=== PATIENT | male | born 1975 | race Caucasian/White ===

== ENCOUNTER 2016-11-08 14:15 | Inpatient (IN) | payer MEDICAID ==
[~2016-11-08] VITALS: Ht 188 cm; Wt 95.5 kg
--- NOTE | ~2016-11-08 | OP ---
PATIENT NAME: MADELIN WRIGHT MEDICAL RECORD: [id number] :75 LOCATION:[id number] ADMISSION DATE:11/08/16 SURGEON: GREG FINE MD DATE OF OPERATION: 11/08/2016 PREOPERATIVE DIAGNOSIS: Grade I open distal radius fracture of the right wrist. POSTOPERATIVE DIAGNOSIS: Grade I open distal radius fracture of the right wrist. PROCEDURE: 1. External fixation -- Birail for distal radius fracture. 2. Percutaneous pinning distal radius fracture times 3. 3. Irrigation and debridement of open wound with primary closure less than 20 cm. SURGEON: Greg Fine MD. ANESTHESIA: General. INTRAOPERATIVE COMPLICATIONS: None. SUMMARY OF PATHOLOGIC FINDINGS: The patient's open, which I do think was a true inside out opening, was less than 1 cm in its total. It was amenable to immediate closure. The patient had a very comminuted distal radius fracture that required external fixation and pinning as described below. OPERATIVE SUMMARY IN DETAIL: After obtaining the appropriate preoperative orthopedic surgery consent as well as anesthetic consultation, evaluation and clearance, the patient was brought to the operating room and placed on the operating table in supine position. After general laryngeal mask was administered, tourniquet was placed about the proximal aspect of the right upper extremity. Right upper extremity was then prepped and draped in routine sterile fashion. The arm was elevated, exsanguinated and tourniquet was inflated to 350 mmHg. Reduction maneuver was performed with counter traction under fluoroscopic guidance resulting in good baptism of the amount of displacement of the primary fracture. At this point, the ex-fix Birail Thakkar II by Washta was placed with 2 pins in the radius, followed by 2 pins in the base of the second ray. The ex-fix was then pulled into a reduced position as seen on fluoroscopy and then the Birail ex-fix was tightened. Having completed this, 0.062 K wires were placed, one to the radial styloid across the ulnar cortex, one to the ulnar styloid across the radial cortex while reducing it using a joystick method and the last of which was placed in a Josué-Kapandji technique from dorsal to volar. Having completed this, relaxing incisions were made about the pins. Incisions for the external fixator were closed with 4-0 Prolene. As for the relaxing incisions of the wound on the contralateral side of the incision having already been debrided both sharply with a scalpel as well as a rongeur was closed with 4-0 Prolene in interrupted fashion. Having completed this, sterile dressings were applied. Tourniquet was deflated. The patient was awakened, taken to the recovery room in stable condition. All final needle and sponge counts were correct. TRANSINT:[id number] Voice Confirmation ID: [id number] DOCUMENT ID: [id number] OPERATIVE REPORT [id number] MADELIN WRIGHT MD, GREG JI CC: [id number] DICTATION DATE: 11/08/16 183 WOOL HAT FLANGER: 11/09/16 0432 ADM IN [facility] [address] [place] [address]
[2016-11-08 15:23] LABS: BASOPHILS 0.1 % (0-2); EOSINOPHILS 0.9 % (0-7); HEMATOCRIT 41.5 % (42.0-54.0); HEMOGLOBIN 14.8 g/dL (13.5-17.5); IMMATURE GRANULOCYTES 0.5 % (0-5); LYMPHOCYTES 14.5 % (15-50); MCH 30.3 pg (26.0-34.0); MCHC 35.7 g/dL (31.0-37.0); MEAN PLATELET VOLUME 8.8 fL (7.4-10.4); MONOCYTES 6.7 % (2-11); NEUTROPHILS 77.3 % (40-80); PLATELET COUNT 198 10x3/uL (130-400); RBC 4.88 10x6/uL (4.20-6.10); RDW 12.5 % (11.5-14.5); WBC 13.6 10x3/uL (4.8-10.8)
[2016-11-08 15:54] LABS: ALBUMIN 3.6 g/dL (3.4-5.0); ALKALINE PHOSPHATASE 83 U/L (46-116); ALT (SGPT) 91 U/L (10-68); CALC OSMOLALITY 286 mosm/kg (275-300); CARBON DIOXIDE 26.8 mmol/L (21.0-32.0); CHLORIDE - SERUM 107 mmol/L (98-107); CREATININE - SERUM 0.9 mg/dL (0.6-1.3); GLUCOSE 91 mg/dL (74-106); POTASSIUM - SERUM 3.5 mmol/L (3.5-5.1); PROTEIN - SERUM 6.9 g/dL (6.4-8.2); SODIUM 143 mmol/L (136-145); UREA NITROGEN 18 mg/dL (7-18); eGFR NON AFRICAN AMERICAN > 90 mL/min (90-120)
[2016-11-08 16:41] LABS: INR 1.29 (0.85-1.17); PROTIME 15.9 SECONDS (11.6-15.0)
[2016-11-08 16:42] LABS: APTT 35.4 SECONDS (22.8-39.4)
--- NOTE | 2016-11-08 18:56 | NUR ---
PT RESTING WITH EYES CLOSED AND VOICING NO COMPLAINTS.
--- NOTE | 2016-11-08 19:35 | NUR ---
RECIEVED PT FROM RECOVERY ROOM, ASSESSMENT COMPLETED, NO ACUTE DISTRESS NOTED, WILL IMPLEMENT ORDERS, ORIENTED PATIENT AND VISITOR TO ROOM AND CALL LIGHT, PLACED SCD'S, SR'S UP, WILL MONITOR
[2016-11-08 19:45] VITALS: BP 112/79
--- NOTE | 2016-11-08 20:00 | NUR ---
FLUIDS HUNG AND DILAUDID TOOLS AND PARTS ATTENDANT STARTED PER ORDERS, EDUCATION PROVIDED TO PT AND VISITOR, UNDERSTANDING VOICED, FALL PRECAUTIONS IN PLACE, CL IN REACH
--- NOTE | 2016-11-08 23:20 | NUR ---
RESTING WITH EYES CLOSED, RESP WITH EASE, R ARM ELEVATED WITH ICE, VISITOR AT BEDSIDE, NO DISTRESS NOTED, SR'S UP, CL IN REACH
[2016-11-09] VITALS (7 sets, daily range): BP systolic 118–138; BP diastolic 56–82; Ht 188 cm; Wt 95.5 kg
--- NOTE | 2016-11-09 01:20 | NUR ---
RESTING WITH EYES CLOSED, NO DISTRESS NOTED, FALL PRECAUTION IN PLACE, VISITOR AT BEDSIDE, R ARM ELEVATED WITH ICE, CL IN REACH
[2016-11-09 06:06] LABS: HEMATOCRIT 37.8 % (42.0-54.0); HEMOGLOBIN 13.4 g/dL (13.5-17.5)
--- NOTE | 2016-11-09 07:30 | NUR ---
AWAKE AND ALERT. ORIENTED X3. NEUROVASCULAR CHECKS WNL. LUNGS ARE CLEAR BILATERALLY, NO COUGH NOTED. SKIN IS INTACT WITHOUT REDNESS EXCEPT INCISIONS TO RIGHT WRIST AREA WHICH ARE CLEAN WITHOUT SIGNS OF INFECTION. EXTERNAL FIXATOR IN PLACE WELL. PICC TO LEFT UPPER ARM IS PATENT WITHOUT REDNESS AT INSERTION SITE. FAMILY AT BEDSIDE.
--- NOTE | 2016-11-09 07:45 | NUR ---
C/O INTENSE PAIN TO RIGHT WRIST. REQUESTED AND GIVEN ONE HYDROCODONE PO AND 15MG TORADOL SLOW IVP FOR SAME. WILL MONITOR.
--- NOTE | 2016-11-09 09:35 | NUR ---
* Is the patient Alert and Oriented? Yes 0 * How many steps to enter\exit or inside your home? 1 0 * PCP B[facility] 0 * Pharmacy [facility] 0 * Preadmission Environment Home with Family 0 * ADLs Independent 0 * Equipment None 0 * List name and contact numbers for known caregivers / representatives who currently or will assist patient after discharge: [place] () [phone] 0 * Community resources currently utilized None 0 * Additional services required to return to the preadmission environment? Yes 0 * Can the patient safely return to the preadmission environment? Yes 0 * Has this patient been hospitalized within the prior 30 days at any hospital? No 0 Grand Total: 0 Patient Name: MADELIN WRIGHT Admission Status: ER Accout number: [id number] Admission Date: 11-08-2016 : 1975 Admission Diagnosis: Attending: CHING Current LOS: 1 Anticipated DC Date: Planned Disposition: Home Health Service Primary Insurance: [facility] [employer] [place] Discharge Planning Comments: CM met with patient and ([place]) to assess discharge planning/needs. Patient plans to return home with his where he lives independently. His will be his pickup driver home. Patient will need to be home health when he is discharged home. [facility] signed for [facility]. CM will continue to follow and assist as needed with discharge planning/needs. PCP: Babatunde Pharmacy: [facility] [place] () [phone] Submarine Element Coordinator: Dary Renee
--- NOTE | 2016-11-09 10:16 | NUR ---
REPORTS PAIN IMPROVED AT THIS TIME. ATE A GOOD BREAKFAST WELL. WILL CONTINUE TO MONITOR.
--- NOTE | 2016-11-09 16:49 | NUR ---
REQUESTED AND GIVEN ONE HYDROCODONE PO FOR C/O RIGHT WRIST PAIN. WILL MONITOR.
--- NOTE | 2016-11-09 18:45 | NUR ---
ATE ALL OF SUPPER. REPORTS PAIN IMPROVED AT THIS TIME. NO CHANGES NOTED. DENIES NEEDS.
[2016-11-10 04:00] VITALS: BP 119/72
--- NOTE | 2016-11-10 04:44 | NUR ---
PATIENT REQUESTED THAT DR. FINE BE PAGED TO ASK FOR MEDICATION FOR SLEEP/ANXIETY.
[2016-11-10 05:48] LABS: HEMATOCRIT 34.7 % (42.0-54.0); HEMOGLOBIN 12.1 g/dL (13.5-17.5)
[2016-11-10] MEDS ORDERED: DILAUDID4 MG PO (07:32)
[2016-11-10] MEDS ORDERED: BACTRIM DS TABL1 TAB PO (07:32)
[2016-11-10 07:58] VITALS: BP 123/75
--- NOTE | 2016-11-10 08:11 | NUR ---
PRN DILAUDID 4MG ADMINISTERED PO FOR PAIN 9/10 INCISIONALLY AT THIS TIME. HUMAN FACTORS SCIENTIST D/C PER ORDER. ASSESSMENT PERFORMED PER FLOWSHEET. PT TO D/C HOME WITH HOME HEALTH TODAY. DENIES NEEDS AT THIS TIME. CALL LIGHT IN REACH, WILL CONTINUE WITH PLAN OF CARE.
[2016-11-10] MEDS ORDERED: XANAX1 MG PO (08:12)
--- NOTE | 2016-11-10 09:26 | NUR ---
HOME HEALTH SET UP WITH [facility] FOR DRESSING CHANGES SPOKE WITH LAYO ([phone]) PATIENT BEING DISCHARGED TODAY WITH TO DRIVE HOME. PT DENIES ANY OTHER CM NEEDS.
--- NOTE | 2016-11-10 10:10 | NUR ---
D/C HOME WITH HIS AT THIS TIME.
== END 2016-11-10 10:10 | disposition home health service (06) | DRG 512 ==
LOC: D.ER 14:15 → D.MS 19:30
PROVIDERS: Emergency Medicine; ADMIT Orthopaedic Surgery
PROC: 0PHH05Z Insertion of External Fixation Device into Right Radius, Open Approach (ICD-10-PCS; 2016-11-08)
PROC: 05HC33Z Insertion of Infusion Device into Left Basilic Vein, Percutaneous Approach (ICD-10-PCS; 2016-11-08)
PROC: B54NZZA Ultrasonography of Left Upper Extremity Veins, Guidance (ICD-10-PCS; 2016-11-08)
PROC: 0PSH34Z Reposition Right Radius with Internal Fixation Device, Percutaneous Approach (ICD-10-PCS; principal; 2016-11-08 16:00)
DX: S52.501B Unspecified fracture of the lower end of right radius, initial encounter for open fracture type I or II (principal); F41.9 Anxiety disorder, unspecified; F17.200 Nicotine dependence, unspecified, uncomplicated; W11.XXXA Fall on and from ladder, initial encounter

== ENCOUNTER 2016-11-12 11:19 | Observation (INO) | payer MEDICAID ==
[~2016-11-12] VITALS: Ht 188 cm; Wt 95.5 kg
[~2016-11-12 11:19] MED LIST: BACTRIM DS TABL1 TAB PO; DILAUDID4 MG PO; XANAX1 MG PO
[2016-11-12 15:05] LABS: BASOPHILS 0.3 % (0-2); HEMATOCRIT 36.7 % (42.0-54.0); HEMOGLOBIN 12.7 g/dL (13.5-17.5); IMMATURE GRANULOCYTES 0.3 % (0-5); LYMPHOCYTES 36.4 % (15-50); MCH 29.7 pg (26.0-34.0); MCHC 34.6 g/dL (31.0-37.0); MCV 85.7 fL (80.0-100.0); MEAN PLATELET VOLUME 8.5 fL (7.4-10.4); MONOCYTES 8.4 % (2-11); NEUTROPHILS 50.6 % (40-80); PLATELET COUNT 178 10x3/uL (130-400); RBC 4.28 10x6/uL (4.20-6.10); RDW 12.5 % (11.5-14.5)
[2016-11-12 15:14] LABS: CALC OSMOLALITY 280 mosm/kg (275-300); CALCIUM 8.2 mg/dL (8.5-10.1); CARBON DIOXIDE 30.2 mmol/L (21.0-32.0); CHLORIDE - SERUM 106 mmol/L (98-107); CREATININE - SERUM 0.9 mg/dL (0.6-1.3); GLUCOSE 81 mg/dL (74-106); SODIUM 141 mmol/L (136-145); UREA NITROGEN 14 mg/dL (7-18); eGFR NON AFRICAN AMERICAN > 90 mL/min (90-120)
[2016-11-12 16:05] VITALS: BP 122/64
--- NOTE | 2016-11-12 16:05 | NUR ---
RECEIVED TO ROOM 2204 VIA WHEELCHAIR FROM THE ER. VERY VERBALLY DISRUPTIVE AND DISRESPECTFUL. ASSISTED TO BED. WILL CONTINUE WITH PLAN OF CARE.
[2016-11-12 16:07] VITALS: BP 144/84; Ht 188 cm; Wt 95.5 kg
--- NOTE | 2016-11-12 19:40 | NUR ---
PT. SITTING HALF WAY ON SIDE OF BED AND WAS RE-INSTRUCTED THAT HE IS NOT TO BE OOB AT ALL DUE TO FX. PT. WANTING TO KNOW WHERE HIS IS AND I EXPLAINED THAT I DIDN'T KNOW AND HAD NOT SEEN HER. LUE MIDLINE WITH NS @ 30 AND TITLE EXAMINER ATTACHED WITHOUT ANY ALARMS. CALL LIGHT WITHIN REACH
[2016-11-12 20:00] VITALS: BP 133/79
[2016-11-13 00:11] VITALS: BP 106/51
[2016-11-13 04:00] VITALS: BP 141/73
[2016-11-13 04:57] LABS: BASOPHILS 0.4 % (0-2); EOSINOPHILS 3.5 % (0-7); HEMATOCRIT 35.3 % (42.0-54.0); HEMOGLOBIN 12.1 g/dL (13.5-17.5); IMMATURE GRANULOCYTES 0.4 % (0-5); LYMPHOCYTES 37.7 % (15-50); MCH 29.5 pg (26.0-34.0); MCHC 34.3 g/dL (31.0-37.0); MCV 86.1 fL (80.0-100.0); MEAN PLATELET VOLUME 8.8 fL (7.4-10.4); MONOCYTES 11.2 % (2-11); NEUTROPHILS 46.8 % (40-80); PLATELET COUNT 178 10x3/uL (130-400); RDW 12.4 % (11.5-14.5); WBC 5.2 10x3/uL (4.8-10.8)
[2016-11-13 05:14] LABS: CALC OSMOLALITY 280 mosm/kg (275-300); CALCIUM 8.5 mg/dL (8.5-10.1); CARBON DIOXIDE 27.8 mmol/L (21.0-32.0); CHLORIDE - SERUM 106 mmol/L (98-107); CREATININE - SERUM 0.9 mg/dL (0.6-1.3); GLUCOSE 96 mg/dL (74-106); POTASSIUM - SERUM 4.3 mmol/L (3.5-5.1); SODIUM 140 mmol/L (136-145); UREA NITROGEN 17 mg/dL (7-18); eGFR NON AFRICAN AMERICAN > 90 mL/min (90-120)
--- NOTE | 2016-11-13 06:43 | NUR ---
PT. IN BED WITH HOB UP FOR COMFORT. PT. HAS HAD HIS HIBICLENS BATH IN PREPARATION FOR OR IF DR. FINE DECIDES TO PERFORM TODAY. IV VIA PUMP INFUSING AT 30CC/HR OF NS WITHOUT ALARMS. BEAM WARPER DEMEROL ALSO AVAILABLE PRN. CALL LIGHT WITHIN REACH.
--- NOTE | 2016-11-13 07:30 | NUR ---
AWAKE AND ALERT. ORIENTED X3. C/O RIGHT HAND/ARM PAIN. WILL MONITOR. LUNGS ARE CLEAR BILATERALLY, NO COUGH NOTED. SKIN IS INTACT WITHOUT REDNESS EXCEPT WOUND TO RIGHT HAND WITH EXTERNAL FIXATOR, DRESSING DRY AND INTACT. LEFT UPPER ARM MIDLINE INTACT WITHOUT REDNESS AT INSERTION SITE. DENIES NEEDS. AT BEDSIDE.
[2016-11-13 08:59] VITALS: BP 126/88
--- NOTE | 2016-11-13 11:10 | NUR ---
RESTING QUIETLY WITH EYES CLOSED. NO NEEDS NOTED.
--- NOTE | 2016-11-13 12:12 | NUR ---
REQUESTED AND GIVEN ONE PERCOCET PO FOR C/O RIGHT HAND PAIN LEVEL 10 WILL MONITOR.
[2016-11-13 13:13] VITALS: BP 125/80
--- NOTE | 2016-11-13 15:00 | NUR ---
AMBULATED IN HALLWAY WITH PT USING PLATFORM WALKER WITHOUT C/O INCREASED PAIN. WILL CONTINUE TO MONITOR.
--- NOTE | 2016-11-13 17:15 | NUR ---
REQUESTED AND GIVEN ONE PERCOCET PO FOR C/O RIGHT HAND PAIN LEVEL 9. WILL MONITOR. ATE ALMOST ALL OF SUPPER. NO CHANGES NOTED. DENIES NEEDS.
[2016-11-13 17:43] VITALS: BP 134/89
[2016-11-13 20:00] VITALS: BP 137/77
--- NOTE | 2016-11-13 20:00 | NUR ---
REC'D IN HALLWAY AWAKE AND ALERT. RESP EVEN AND UNLABORED WIHT NO DISTRESS NOTED. CAN EXPRESS NEEDS AND WANTS. AMBULATED WITH SLOW AND STEADY GAIT. ASSESSMENT COMPLETED. AT THIS TIME. C/L IN REACH AT BEDSIDE.
[2016-11-14] VITALS: BP 148/86
[2016-11-14 04:00] VITALS: BP 140/70
--- NOTE | 2016-11-14 04:32 | NUR ---
PATIENT RESTING WITH EYES CLOSED AND NO VISIBLE SIGNS OF DISTRESS. BED IN LOWEST POSITION AND CALL LIGHT WITHIN REACH.
--- NOTE | 2016-11-14 08:02 | NUR ---
AWAKE AND ALERT. ORIENTED X3. C/O PAIN TO RIGHT HIP AND RIGHT HAND. ENCOURAGED TO STAY UP ON SALES PERSON USE. WILL MONITOR. LUNGS ARE CLEAR BILATERALLY, NO COUGH NOTED. SKIN IS INTACT WITHOUT REDNESS EXCEPT TO RIGHT HAND WHICH HAS AN EXTERNAL FIXATOR IN PLACE. NEURO VASCULAR CHECKS WNL. LEFT UPPER ARM MIDLINE IS PATENT WITHOUT REDNESS AT INSERTION SITE. AT BEDSIDE. DENIES NEEDS. IS UP WALKING AROUND IN ROOM WITHOUT ASSISTIVE DEVICE. DISCUSSED RATIONALE FOR USE OF PLATFORM WALKER. WILL MONITOR.
[2016-11-14 09:02] VITALS: BP 133/81
--- NOTE | 2016-11-14 10:00 | NUR ---
REQUESTED AND GIVEN ONE PERCOCET PO FOR C/O RIGHT HAND PAIN LEVEL 6. WILL MONITOR.
--- NOTE | 2016-11-14 10:46 | NUR ---
Late Entry 11/13/[address] Rodriguez advised CM that patient will require a platform walker. He plans to disharge him to home 11/15/16 AM. TC to [facility]. Spoke with Mya. She will check the warehouse and advise CM Tuesday AM. 11/14/[address] [facility] & spoke with electronics mechanic apprentice, Mya. She will have rolloff truck driver call back regarding platform when he checks the warehouse.
[2016-11-14 12:44] VITALS: BP 99/49
[2016-11-14] MEDS ORDERED: SOMA350 MG PO (13:45)
[2016-11-14] MEDS ORDERED: DILAUDID4 MG PO (13:45)
[2016-11-14] MEDS ORDERED: ZOFRAN4 MG PO (13:52)
--- NOTE | 2016-11-14 16:08 | NUR ---
PATIEINT FOR DISCHARGE TO HOME. HE IS ON SERVICE WITH [facility]. TC TO [facility]. SPOKE WITH SHIPPER RECEIVER RORO. ADVISED PATIENT WAS BEING DISCHARGED TO HOME. FAXED UPDATE FOR RESUMPTION OF CARE. pLATFORM WALKER WAS DELIVERED TO PATIENT EARLIER TODAY.
--- NOTE | 2016-11-14 16:30 | NUR ---
DISCHARGED TO HOME AMBULATORY WITH PLATFORM WALKER AND . DISCHARGE INSTRUCTIONS GIVEN BOTH VERBALLY AND WRITTEN. ALL QUESTIONS ANSWERED. PATIENT AND VERBALIZED UNDERSTANDING OF SAME. NEEDED PRESCRIPTIONS GIVEN TO PATIENT. LEFT UPPER ARM MIDLINE D/C WITHOUT DIFFUCLUTY WITH TIP INTACT APPROXIMATELY 9CM.
== END 2016-11-14 16:30 | disposition home or self-care (01) ==
LOC: D.ER 11:19 → D.MS 14:00 → OBSVTIME 14:00 → D.MS 14:00
PROVIDERS: Family Medicine; ADMIT Orthopaedic Surgery
DX: S32.599A Other specified fracture of unspecified pubis, initial encounter for closed fracture (principal); S52.502E Unspecified fracture of the lower end of left radius, subsequent encounter for open fracture type I or II with routine healing; W19.XXXA Unspecified fall, initial encounter; F17.200 Nicotine dependence, unspecified, uncomplicated; M62.838 Other muscle spasm

== ENCOUNTER 2016-12-30 07:47 | Day surgery (SDC) | payer MEDICAID ==
[~2016-12-30] VITALS: Ht 188 cm; Wt 97.5 kg
[~2016-12-30 07:47] MED LIST changes: +ALBUTEROL2.5 MG/3 M INH; +IBUPROFEN800 MG PO; +SOMA350 MG PO; +ZOFRAN4 MG PO
[2016-12-30 08:13] VITALS: BP 125/69; Ht 188 cm; Wt 97.5 kg
[2016-12-30] MEDS ORDERED: SOMA350 MG PO (08:13)
[2016-12-30 08:45] LABS: HEMATOCRIT 40.9 % (42.0-54.0); HEMOGLOBIN 14.7 g/dL (13.5-17.5); MCH 29.9 pg (26.0-34.0); MCHC 35.9 g/dL (31.0-37.0); MCV 83.3 fL (80.0-100.0); MEAN PLATELET VOLUME 8.9 fL (7.4-10.4); RBC 4.91 10x6/uL (4.20-6.10); RDW 12.7 % (11.5-14.5); WBC 8.2 10x3/uL (4.8-10.8)
[2016-12-30] MEDS ORDERED: DILAUDID4 MG PO (09:42)
--- NOTE | 2016-12-30 10:42 | NUR ---
NOTIFIED ANETHESIA REGARDING DECREASED LOC. ANETHESIA AT BEDSIDE. GIVEN ORDERS TO GIVE FLUMAZENIL BY ANETHESIA. SEE EMAR. GIVEN AT 1018. O2 SAT 99% ON 10L/SM. WILL CONTINUE TO MONIOR.
--- NOTE | 2016-12-30 10:48 | NUR ---
NO PAIN MEDS WERE GIVEN IN PACU SECONDARY TO DECREASED LOC. PATIENT TAKES DILAUDID AND SOMA EVERYDAY AT HOME.
--- NOTE | 2016-12-30 12:09 | NUR ---
1130 PT REQUESTED SOMA PRESCRIPTION. TALKED TO DR. FINE OR REFUSED THE REQUEST. PT WAS VERY ABRASIVE AND UPSET ABOUT NOT GETTING THE PRESCRIPTION. DIRECTOR BRIAN NOTIFIED.
--- NOTE | 2016-12-30 12:48 | NUR ---
1225 DISCHARGE INSTRUCTIONS COMPLETE. PATIENT VERY UPSET ABOUT NOT RECEIVING SOMA PRESCRIPTION AND THAT HE WAS NOT GETTING MORE DILAUDID TABLETS (PRESCRIPTION WRITTEN FOR 40 TABS). ONE AGAIN DIRECTOR BRIAN NOTIFIED. ESCORTED OUT BY VOLUNTEER.
--- NOTE | 2016-12-30 14:36 | OP ---
PATIENT NAME: MADELIN WRIGHT MEDICAL RECORD: [id number] :75 LOCATION:[facility] ADMISSION DATE: SURGEON: GREG FINE MD DATE OF OPERATION: 12/30/2016 PREOPERATIVE DIAGNOSIS: Retained external fixator - Birail of the right upper extremity. POSTOPERATIVE DIAGNOSIS: Retained external fixator - Birail of the right upper extremity. PROCEDURE: Removal of external fixator under general anesthesia. SURGEON: Greg Fine MD ANESTHESIA: General. INTRAOPERATIVE COMPLICATIONS: None. SUMMARY OF PATHOLOGIC FINDINGS: Essentially none. OPERATIVE SUMMARY IN DETAIL: After obtaining the appropriate preoperative orthopedic surgery consent as well as anesthetic consultation, evaluation and clearance, the patient was brought to the operating room and placed on the operating table in supine position. After adequate general laryngeal mask was administered, the patient's right upper extremity and ex-fix were prepped and draped in routine sterile fashion. Serial and sequential removal of the Birail external fixator system was followed by removal of the external pins. Pin sites were cleansed and covered with Xeroform dressing and then a small 3 x 8 volar splint was applied. The patient was awakened, taken to recovery room in stable condition. All final needle and sponge counts were correct. TRANSINT:[id number] Voice Confirmation ID: [id number] DOCUMENT ID: [id number] BABATUNDE LEES, GREG JI at 1436 CC: [id number] DICTATION DATE: 12/30/16 0940 SLASHER HAND: 12/30/16 1041 [facility] 12/30/[address] [address]
== END 2016-12-30 12:25 | disposition home or self-care (01) ==
LOC: D.OPS 07:47 → D.PAN 11:00 → D.OPS 11:45 → D.PAN 12:15 → D.OPS 12:15
PROVIDERS: Anesthesiology
DX: Z47.2 Encounter for removal of internal fixation device (principal); Z01.812 Encounter for preprocedural laboratory examination